=== PATIENT | female | born 1945 | race Asian ===

== ENCOUNTER 2016-02-18 09:27 | Inpatient (IN) | payer OTHER | END 2016-03-20 08:00 | disposition still patient (30) | LOC: PAVB 09:27 | PROVIDERS: ADMIT Internal Medicine | DX: Z51.89 Encounter for other specified aftercare (principal) ==

== ENCOUNTER 2016-03-20 09:00 | Inpatient (IN) | payer OTHER | END 2016-04-20 10:16 | disposition still patient (30) | LOC: PAVB 09:00 | PROVIDERS: ADMIT Internal Medicine | DX: Z51.89 Encounter for other specified aftercare (principal) ==

== ENCOUNTER 2016-04-20 10:38 | Inpatient (IN) | payer OTHER | END 2016-05-18 09:44 | disposition still patient (30) | LOC: PAVB 10:38 | PROVIDERS: ADMIT Internal Medicine | DX: Z51.89 Encounter for other specified aftercare (principal) ==

== ENCOUNTER 2016-04-22 06:37 | Outpatient (CLI) | payer OTHER ==
[2016-04-22 06:56] LABS: PLATELET COUNT 252 K/uL (152-353)
[2016-04-22 07:16] LABS: SODIUM 136 mmol/L (136-145)
== END 2016-04-22 07:37 | disposition home or self-care (01) ==
LOC: LAB 06:37
PROVIDERS: Internal Medicine
DX: I10 Essential (primary) hypertension (principal); Z79.899 Other long term (current) drug therapy; R73.9 Hyperglycemia, unspecified
CPT/HCPCS: 36415; 80053; 80164; 82306; 83036; 85027

== ENCOUNTER 2016-05-06 15:01 | Outpatient (CLI) | payer OTHER | END 2016-05-06 19:31 | disposition home or self-care (01) | LOC: LAB 15:01 | DX: R10.84 Generalized abdominal pain (principal) | CPT/HCPCS: 81000; 87088 ==

== ENCOUNTER 2016-05-18 10:27 | Inpatient (IN) | payer OTHER | END 2016-06-18 08:06 | disposition still patient (30) | LOC: PAVB 10:27 | PROVIDERS: ADMIT Internal Medicine | DX: Z51.89 Encounter for other specified aftercare (principal) ==

== ENCOUNTER 2016-06-03 09:58 | Outpatient (CLI) | payer OTHER | END 2016-06-03 10:58 | disposition home or self-care (01) | LOC: MAMMO 09:58 | DX: Z12.31 Encounter for screening mammogram for malignant neoplasm of breast (principal) | CPT/HCPCS: G0202-TC ==

== ENCOUNTER 2016-06-15 13:43 | Outpatient (CLI) | payer OTHER | END 2016-06-15 19:19 | disposition home or self-care (01) | LOC: MAMMO 13:43 | DX: N64.89 Other specified disorders of breast (principal) | CPT/HCPCS: G0206-TC ==

== ENCOUNTER 2016-06-18 09:25 | Inpatient (IN) | payer OTHER | END 2016-07-18 09:09 | disposition still patient (30) | LOC: PAVB 09:25 | PROVIDERS: ADMIT Internal Medicine | DX: Z51.89 Encounter for other specified aftercare (principal) ==

== ENCOUNTER 2016-07-06 04:49 | Outpatient (CLI) | payer OTHER | END 2016-07-06 19:02 | disposition home or self-care (01) | LOC: LAB 04:49 | DX: Z16.24 Resistance to multiple antibiotics (principal) | CPT/HCPCS: 87081 ==

== ENCOUNTER 2016-07-18 09:57 | Inpatient (IN) | payer OTHER | END 2016-08-18 09:32 | disposition still patient (30) | LOC: PAVB 09:57 | PROVIDERS: ADMIT Internal Medicine | DX: Z51.89 Encounter for other specified aftercare (principal) ==

== ENCOUNTER 2016-07-22 08:36 | Outpatient (CLI) | payer OTHER | END 2016-07-22 09:30 | disposition home or self-care (01) | LOC: LAB 08:36 | DX: E11.9 Type 2 diabetes mellitus without complications (principal) | CPT/HCPCS: 36415; 83036 ==

== ENCOUNTER 2016-08-18 09:57 | Inpatient (IN) | payer OTHER | END 2016-09-17 15:22 | disposition still patient (30) | LOC: PAVB 09:57 | PROVIDERS: ADMIT Internal Medicine | DX: Z51.89 Encounter for other specified aftercare (principal) ==

== ENCOUNTER 2016-09-17 15:38 | Inpatient (IN) | payer OTHER | END 2016-10-18 09:43 | disposition still patient (30) | LOC: PAVB 15:38 | PROVIDERS: ADMIT Internal Medicine | DX: Z51.89 Encounter for other specified aftercare (principal) ==

== ENCOUNTER 2016-10-18 10:31 | Inpatient (IN) | payer OTHER | END 2016-11-18 08:41 | disposition still patient (30) | LOC: PAVB 10:31 | PROVIDERS: ADMIT Internal Medicine | DX: Z51.89 Encounter for other specified aftercare (principal) ==

== ENCOUNTER 2016-10-20 06:17 | Outpatient (CLI) | payer OTHER ==
[2016-10-20 08:03] LABS: PLATELET COUNT 245 K/uL (152-353)
[2016-10-20 08:28] LABS: POTASSIUM 4.1 mmol/L (3.6-5.2); SODIUM 142 mmol/L (136-145)
== END 2016-10-20 19:54 | disposition home or self-care (01) ==
LOC: LAB 06:17
PROVIDERS: Internal Medicine
DX: I10 Essential (primary) hypertension (principal); Z79.899 Other long term (current) drug therapy; E55.9 Vitamin D deficiency, unspecified; Z51.81 Encounter for therapeutic drug level monitoring
CPT/HCPCS: 36415; 80053; 80164; 82306; 83036; 85027

== ENCOUNTER 2016-11-16 15:41 | Outpatient (CLI) | payer OTHER | END 2016-11-16 19:19 | disposition home or self-care (01) | LOC: RESP 15:41 | DX: G56.21 Lesion of ulnar nerve, right upper limb (principal) ==

== ENCOUNTER 2016-11-17 15:01 | Outpatient (CLI) | payer OTHER | END 2016-11-17 19:02 | disposition home or self-care (01) | LOC: LAB 15:01 | DX: E11.9 Type 2 diabetes mellitus without complications (principal) | CPT/HCPCS: 83036 ==

== ENCOUNTER 2016-11-18 09:09 | Inpatient (IN) | payer OTHER | END 2016-12-18 10:34 | disposition still patient (30) | LOC: PAVB 09:09 | PROVIDERS: ADMIT Internal Medicine ==

== ENCOUNTER 2016-12-18 10:38 | Inpatient (IN) | payer OTHER | END 2017-01-18 12:56 | disposition still patient (30) | LOC: PAVB 10:38 | PROVIDERS: ADMIT Internal Medicine ==

== ENCOUNTER 2017-01-02 14:17 | Outpatient (CLI) | payer OTHER | END 2017-01-02 15:20 | disposition home or self-care (01) | LOC: RAD 14:17 | DX: M25.511 Pain in right shoulder (principal) ==

== ENCOUNTER 2017-01-12 09:01 | Outpatient (CLI) | payer OTHER | END 2017-01-12 10:05 | disposition home or self-care (01) | LOC: MRI 09:01 | DX: M25.511 Pain in right shoulder (principal) ==

== ENCOUNTER 2017-01-18 13:39 | Inpatient (IN) | payer OTHER ==
[2017-02-14] MEDS ORDERED: AMLODIPINE BESYLATE PO (17:55)
[2017-02-14] MEDS ORDERED: SIMBRINZA OP (17:55)
[2017-02-14] MEDS ORDERED: FLUTMIS6 INH (17:55)
[2017-02-14] MEDS ORDERED: ANORO ELLIPTA 61 AER IN (17:56)
[2017-02-14] MEDS ORDERED: BUSPIRONE7.5 MG PO (17:56)
[2017-02-14] MEDS ORDERED: BENZTROPINE2 MG PO (17:56)
[2017-02-14] MEDS ORDERED: CALCIUM +D OR (17:57)
[2017-02-14] MEDS ORDERED: DIVA500T2 OR (17:58)
[2017-02-14] MEDS ORDERED: CLON0.5T36 PO (17:58)
[2017-02-14] MEDS ORDERED: FLUO10CA2 PO (17:58)
[2017-02-14] MEDS ORDERED: METF100038 OR (17:59)
[2017-02-14] MEDS ORDERED: MELATONIN10 M2 PO (17:59)
[2017-02-14] MEDS ORDERED: NAMZARIC 28-101 CAP PO (18:00)
[2017-02-14] MEDS ORDERED: MYRBETRIQ50 MG OR (18:00)
[2017-02-14] MEDS ORDERED: NAPROSYN500 MG OR (18:01)
[2017-02-14] MEDS ORDERED: MIRALAX3350 N1 OR (18:01)
[2017-02-14] MEDS ORDERED: PROTONIX20 MG PO (18:01)
[2017-02-14] MEDS ORDERED: REQUIP1 MG OR (18:02)
[2017-02-14] MEDS ORDERED: SEROQUEL100 MG OR (18:02)
[2017-02-14] MEDS ORDERED: LAXATIVE1 TAB OR (18:03)
[2017-02-14] MEDS ORDERED: ZIPR80CA PO (18:03)
[2017-02-14] MEDS ORDERED: ALPR0.2566 PO (18:04)
[2017-02-14] MEDS ORDERED: DIPH25CA90 PO (18:05)
[2017-02-14] MEDS ORDERED: ROBITUSSIN15 MG/5 ML OR (18:06)
== END 2017-02-17 09:19 | disposition still patient (30) ==
LOC: PAVB 13:39
PROVIDERS: ADMIT Internal Medicine

== ENCOUNTER 2017-01-23 12:36 | Outpatient (CLI) | payer OTHER | END 2017-01-23 13:40 | disposition home or self-care (01) | LOC: RAD 12:36 | DX: R05 Cough (principal) ==

== ENCOUNTER 2017-02-13 04:29 | Outpatient (CLI) | payer OTHER ==
[2017-02-14] MEDS ORDERED: SIMBRINZA OP (17:55)
[2017-02-14] MEDS ORDERED: AMLODIPINE BESYLATE PO (17:55)
[2017-02-14] MEDS ORDERED: FLUTMIS6 INH (17:55)
[2017-02-14] MEDS ORDERED: ANORO ELLIPTA 61 AER IN (17:56)
[2017-02-14] MEDS ORDERED: BUSPIRONE7.5 MG PO (17:56)
[2017-02-14] MEDS ORDERED: BENZTROPINE2 MG PO (17:56)
[2017-02-14] MEDS ORDERED: CALCIUM +D OR (17:57)
[2017-02-14] MEDS ORDERED: CLON0.5T36 PO (17:58)
[2017-02-14] MEDS ORDERED: DIVA500T2 OR (17:58)
[2017-02-14] MEDS ORDERED: FLUO10CA2 PO (17:58)
[2017-02-14] MEDS ORDERED: METF100038 OR (17:59)
[2017-02-14] MEDS ORDERED: MELATONIN10 M2 PO (17:59)
[2017-02-14] MEDS ORDERED: NAMZARIC 28-101 CAP PO (18:00)
[2017-02-14] MEDS ORDERED: MYRBETRIQ50 MG OR (18:00)
[2017-02-14] MEDS ORDERED: MIRALAX3350 N1 OR (18:01)
[2017-02-14] MEDS ORDERED: PROTONIX20 MG PO (18:01)
[2017-02-14] MEDS ORDERED: NAPROSYN500 MG OR (18:01)
[2017-02-14] MEDS ORDERED: SEROQUEL100 MG OR (18:02)
[2017-02-14] MEDS ORDERED: REQUIP1 MG OR (18:02)
[2017-02-14] MEDS ORDERED: LAXATIVE1 TAB OR (18:03)
[2017-02-14] MEDS ORDERED: ZIPR80CA PO (18:03)
[2017-02-14] MEDS ORDERED: ALPR0.2566 PO (18:04)
[2017-02-14] MEDS ORDERED: DIPH25CA90 PO (18:05)
[2017-02-14] MEDS ORDERED: ROBITUSSIN15 MG/5 ML OR (18:06)
== END 2017-02-13 18:54 | disposition home or self-care (01) ==
LOC: LAB 04:29
DX: E11.21 Type 2 diabetes mellitus with diabetic nephropathy (principal)
CPT/HCPCS: 36415; 83036

== ENCOUNTER 2017-02-14 17:39 | Emergency (ER) | payer OTHER ==
[~2017-02-14] VITALS: Ht 165.1 cm; Wt 99.8 kg
[2017-02-14] MEDS ORDERED: FLUTMIS6 INH (17:55)
[2017-02-14] MEDS ORDERED: SIMBRINZA OP (17:55)
[2017-02-14] MEDS ORDERED: AMLODIPINE BESYLATE PO (17:55)
[2017-02-14] MEDS ORDERED: BENZTROPINE2 MG PO (17:56)
[2017-02-14] MEDS ORDERED: BUSPIRONE7.5 MG PO (17:56)
[2017-02-14] MEDS ORDERED: ANORO ELLIPTA 61 AER IN (17:56)
[2017-02-14] MEDS ORDERED: CALCIUM +D OR (17:57)
[2017-02-14] MEDS ORDERED: FLUO10CA2 PO (17:58)
[2017-02-14] MEDS ORDERED: DIVA500T2 OR (17:58)
[2017-02-14] MEDS ORDERED: CLON0.5T36 PO (17:58)
[2017-02-14] MEDS ORDERED: METF100038 OR (17:59)
[2017-02-14] MEDS ORDERED: MELATONIN10 M2 PO (17:59)
[2017-02-14] MEDS ORDERED: NAMZARIC 28-101 CAP PO (18:00)
[2017-02-14] MEDS ORDERED: MYRBETRIQ50 MG OR (18:00)
[2017-02-14] MEDS ORDERED: PROTONIX20 MG PO (18:01)
[2017-02-14] MEDS ORDERED: NAPROSYN500 MG OR (18:01)
[2017-02-14] MEDS ORDERED: MIRALAX3350 N1 OR (18:01)
[2017-02-14] MEDS ORDERED: REQUIP1 MG OR (18:02)
[2017-02-14] MEDS ORDERED: SEROQUEL100 MG OR (18:02)
[2017-02-14] MEDS ORDERED: ZIPR80CA PO (18:03)
[2017-02-14] MEDS ORDERED: LAXATIVE1 TAB OR (18:03)
[2017-02-14] MEDS ORDERED: ALPR0.2566 PO (18:04)
[2017-02-14] MEDS ORDERED: DIPH25CA90 PO (18:05)
[2017-02-14] MEDS ORDERED: ROBITUSSIN15 MG/5 ML OR (18:06)
[2017-02-14 18:13] LABS: PLATELET COUNT 273 K/uL (152-353)
[2017-02-14 18:31] LABS: POTASSIUM 4.2 mmol/L (3.6-5.2); SODIUM 138 mmol/L (136-145)
[2017-02-14 19:20] VITALS: BP 186/99; TEMP 98.9
== END 2017-02-14 19:32 | disposition home or self-care (01) ==
LOC: ED 17:39
DX: G45.9 Transient cerebral ischemic attack, unspecified (principal); G24.01 Drug induced subacute dyskinesia; J32.0 Chronic maxillary sinusitis
CPT/HCPCS: 36415; 80053; 81000; 85027; 99283

== ENCOUNTER 2017-02-17 09:38 | Inpatient (IN) | payer OTHER ==
[~2017-02-17 09:38] MED LIST: ALPR0.2566 PO; AMLODIPINE BESYLATE PO; ANORO ELLIPTA 61 AER IN; BENZTROPINE2 MG PO; BUSPIRONE7.5 MG PO; CALCIUM +D OR; CLON0.5T36 PO; DIPH25CA90 PO; DIVA500T2 OR; FLUO10CA2 PO; FLUTMIS6 INH; LAXATIVE1 TAB OR; MELATONIN10 M2 PO; METF100038 OR; MIRALAX3350 N1 OR; MYRBETRIQ50 MG OR; NAMZARIC 28-101 CAP PO; NAPROSYN500 MG OR; PROTONIX20 MG PO; REQUIP1 MG OR; ROBITUSSIN15 MG/5 ML OR; SEROQUEL100 MG OR; SIMBRINZA OP; ZIPR80CA PO
== END 2017-03-20 09:30 | disposition still patient (30) ==
LOC: PAVB 09:38
PROVIDERS: ADMIT Internal Medicine

== ENCOUNTER 2017-02-23 13:04 | Outpatient (CLI) | payer OTHER | END 2017-02-23 19:11 | disposition home or self-care (01) | LOC: RESP 13:04 | DX: G45.8 Other transient cerebral ischemic attacks and related syndromes (principal) ==

== ENCOUNTER 2017-02-24 08:59 | Outpatient (CLI) | payer OTHER | END 2017-02-24 19:17 | disposition home or self-care (01) | LOC: MRI 08:59 | DX: Z86.73 Personal history of transient ischemic attack (TIA), and cerebral infarction without residual deficits (principal) | CPT/HCPCS: 93306 ==

== ENCOUNTER 2017-03-20 10:00 | Inpatient (IN) | payer OTHER | END 2017-04-20 09:49 | disposition still patient (30) | LOC: PAVB 10:00 | PROVIDERS: ADMIT Internal Medicine ==

== ENCOUNTER 2017-04-20 10:35 | Inpatient (IN) | payer OTHER | END 2017-05-18 09:18 | disposition still patient (30) | LOC: PAVB 10:35 | PROVIDERS: ADMIT Internal Medicine ==

== ENCOUNTER 2017-04-25 05:47 | Outpatient (CLI) | payer OTHER ==
[2017-04-25 06:28] LABS: PLATELET COUNT 276 K/uL (152-353)
[2017-04-25 06:41] LABS: POTASSIUM 4.2 mmol/L (3.6-5.2)
== END 2017-04-25 20:03 | disposition home or self-care (01) ==
LOC: LAB 05:47
PROVIDERS: Internal Medicine
DX: I10 Essential (primary) hypertension (principal); Z79.899 Other long term (current) drug therapy; Z51.81 Encounter for therapeutic drug level monitoring; E55.9 Vitamin D deficiency, unspecified
CPT/HCPCS: 80053; 80164; 82306; 83036; 85027

== ENCOUNTER 2017-05-18 09:52 | Inpatient (IN) | payer OTHER | END 2017-06-18 08:00 | disposition still patient (30) | LOC: PAVB 09:52 | PROVIDERS: ADMIT Internal Medicine ==

== ENCOUNTER 2017-06-18 09:00 | Inpatient (IN) | payer OTHER | END 2017-07-18 09:04 | disposition still patient (30) | LOC: PAVB 09:00 | PROVIDERS: ADMIT Internal Medicine ==

== ENCOUNTER 2017-07-18 09:30 | Inpatient (IN) | payer OTHER | END 2017-08-18 08:52 | disposition still patient (30) | LOC: PAVB 09:30 | PROVIDERS: ADMIT Internal Medicine ==

== ENCOUNTER 2017-07-19 10:22 | Outpatient (CLI) | payer OTHER | END 2017-07-19 21:39 | disposition home or self-care (01) | LOC: LAB 10:22 | DX: E11.9 Type 2 diabetes mellitus without complications (principal) | CPT/HCPCS: 83036 ==

== ENCOUNTER 2017-08-18 09:16 | Inpatient (IN) | payer OTHER | END 2017-09-17 14:19 | disposition still patient (30) | LOC: PAVB 09:16 | PROVIDERS: ADMIT Internal Medicine ==

== ENCOUNTER 2017-09-17 14:49 | Inpatient (IN) | payer OTHER | END 2017-10-18 08:00 | disposition still patient (30) | LOC: PAVB 14:49 | PROVIDERS: ADMIT Internal Medicine ==

== ENCOUNTER 2017-10-18 09:00 | Inpatient (IN) | payer OTHER | END 2017-11-18 10:18 | disposition still patient (30) | LOC: PAVB 09:00 | PROVIDERS: ADMIT Internal Medicine ==

== ENCOUNTER 2017-10-24 05:06 | Outpatient (CLI) | payer OTHER ==
[2017-10-24 08:58] LABS: PLATELET COUNT 278 K/uL (152-353)
[2017-10-24 09:42] LABS: POTASSIUM 4.4 mmol/L (3.6-5.2)
== END 2017-10-24 19:00 | disposition home or self-care (01) ==
LOC: LAB 05:06
PROVIDERS: Internal Medicine
DX: E11.9 Type 2 diabetes mellitus without complications (principal); Z79.899 Other long term (current) drug therapy; I10 Essential (primary) hypertension
CPT/HCPCS: 36415; 80053; 82306; 83036; 85027

== ENCOUNTER 2017-11-01 05:35 | Outpatient (CLI) | payer OTHER | END 2017-11-01 23:59 | disposition home or self-care (01) | LOC: LAB 05:35 | DX: Z51.81 Encounter for therapeutic drug level monitoring (principal) | CPT/HCPCS: 80164 ==

== ENCOUNTER 2017-11-18 10:57 | Inpatient (IN) | payer OTHER | END 2017-12-18 09:20 | disposition still patient (30) | LOC: PAVB 10:57 | PROVIDERS: ADMIT Internal Medicine ==

== ENCOUNTER 2017-12-18 10:06 | Inpatient (IN) | payer OTHER | END 2018-01-18 08:47 | disposition still patient (30) | LOC: PAVB 10:06 | PROVIDERS: ADMIT Internal Medicine ==

== ENCOUNTER 2018-01-18 06:00 | Outpatient (CLI) | payer OTHER | END 2018-01-18 21:49 | disposition home or self-care (01) | LOC: LAB 06:00 | DX: E11.9 Type 2 diabetes mellitus without complications (principal) | CPT/HCPCS: 36415; 83036 ==

== ENCOUNTER 2018-01-18 09:46 | Inpatient (IN) | payer OTHER | END 2018-02-17 08:32 | disposition still patient (30) | LOC: PAVB 09:46 | PROVIDERS: ADMIT Internal Medicine ==

== ENCOUNTER 2018-02-02 15:35 | Outpatient (CLI) | payer OTHER | END 2018-02-02 19:20 | disposition home or self-care (01) | LOC: RAD 15:35 | DX: N95.8 Other specified menopausal and perimenopausal disorders (principal) ==

== ENCOUNTER 2018-02-17 09:11 | Inpatient (IN) | payer OTHER | END 2018-03-20 11:05 | disposition still patient (30) | LOC: PAVB 09:11 | PROVIDERS: ADMIT Internal Medicine ==

== ENCOUNTER 2018-03-20 11:21 | Inpatient (IN) | payer OTHER | END 2018-04-20 10:53 | disposition still patient (30) | LOC: PAVB 11:21 → EDBD 04-20 10:53 | PROVIDERS: ADMIT Internal Medicine ==

== ENCOUNTER 2018-04-20 11:11 | Inpatient (IN) | payer OTHER | END 2018-05-18 10:18 | disposition still patient (30) | LOC: EDBD 11:11 → PAVB 11:11 | PROVIDERS: ADMIT Internal Medicine ==

== ENCOUNTER 2018-04-23 05:48 | Outpatient (CLI) | payer OTHER ==
[2018-04-23 08:41] LABS: PLATELET COUNT 335 K/uL (152-353)
[2018-04-23 09:55] LABS: POTASSIUM 4.3 mmol/L (3.6-5.2)
== END 2018-04-23 20:43 | disposition home or self-care (01) ==
LOC: EDBD 05:48 → LAB 05:48
PROVIDERS: Internal Medicine
DX: I10 Essential (primary) hypertension (principal); Z79.899 Other long term (current) drug therapy; E11.9 Type 2 diabetes mellitus without complications
CPT/HCPCS: 80053; 80164; 82306; 83036; 85027

== ENCOUNTER 2018-05-18 11:01 | Inpatient (IN) | payer OTHER | END 2018-06-18 10:39 | disposition still patient (30) | LOC: PAVB 11:01 | PROVIDERS: ADMIT Internal Medicine ==

== ENCOUNTER 2018-06-18 11:16 | Inpatient (IN) | payer OTHER | END 2018-07-18 11:16 | disposition still patient (30) | LOC: PAVB 11:16 | PROVIDERS: ADMIT Internal Medicine ==

== ENCOUNTER 2018-07-18 12:19 | Inpatient (IN) | payer OTHER | END 2018-08-18 08:37 | disposition still patient (30) | LOC: PAVB 12:19 | PROVIDERS: ADMIT Internal Medicine | DX: Z51.89 Encounter for other specified aftercare (principal) ==

== ENCOUNTER 2018-07-23 04:37 | Outpatient (CLI) | payer OTHER | END 2018-07-23 20:13 | disposition home or self-care (01) | LOC: LAB 04:37 | DX: E11.9 Type 2 diabetes mellitus without complications (principal) | CPT/HCPCS: 36415; 83036 ==

== ENCOUNTER 2018-07-31 07:00 | Outpatient (CLI) | payer OTHER | END 2018-07-31 21:17 | disposition home or self-care (01) | LOC: LAB 07:00 | DX: Z79.899 Other long term (current) drug therapy (principal) | CPT/HCPCS: 36415; 80164 ==

== ENCOUNTER 2018-08-16 05:31 | Outpatient (CLI) | payer OTHER | END 2018-08-16 19:13 | disposition home or self-care (01) | LOC: LAB 05:31 | DX: Z51.81 Encounter for therapeutic drug level monitoring (principal); Z79.899 Other long term (current) drug therapy | CPT/HCPCS: 80164 ==

== ENCOUNTER 2018-08-18 09:15 | Inpatient (IN) | payer OTHER | END 2018-09-17 09:37 | disposition still patient (30) | LOC: PAVB 09:15 | PROVIDERS: ADMIT Internal Medicine ==

== ENCOUNTER 2018-09-17 11:19 | Inpatient (IN) | payer OTHER | END 2018-10-18 10:34 | disposition still patient (30) | LOC: PAVB 11:19 | PROVIDERS: ADMIT Internal Medicine ==

== ENCOUNTER 2018-10-18 11:09 | Inpatient (IN) | payer OTHER | END 2018-11-18 16:25 | disposition still patient (30) | LOC: PAVB 11:09 | PROVIDERS: ADMIT Internal Medicine ==

== ENCOUNTER 2018-10-25 15:35 | Outpatient (CLI) | payer OTHER ==
[2018-10-25 15:49] LABS: PLATELET COUNT 290 K/uL (152-353)
[2018-10-25 16:02] LABS: POTASSIUM 3.9 mmol/L (3.6-5.2)
== END 2018-10-25 23:59 | disposition home or self-care (01) ==
LOC: LAB 15:35
PROVIDERS: Internal Medicine
DX: E11.9 Type 2 diabetes mellitus without complications (principal); I10 Essential (primary) hypertension; Z51.81 Encounter for therapeutic drug level monitoring; E55.9 Vitamin D deficiency, unspecified; Z79.899 Other long term (current) drug therapy
CPT/HCPCS: 80053; 80164; 82306; 83036; 85027

== ENCOUNTER 2018-11-18 17:02 | Inpatient (IN) | payer OTHER | END 2018-12-18 09:20 | disposition still patient (30) | LOC: PAVB 17:02 | PROVIDERS: ADMIT Internal Medicine ==

== ENCOUNTER 2018-12-18 10:21 | Inpatient (IN) | payer OTHER | END 2019-01-18 11:09 | disposition still patient (30) | LOC: PAVB 10:21 | PROVIDERS: ADMIT Internal Medicine ==

== ENCOUNTER 2019-01-18 11:30 | Inpatient (IN) | payer OTHER | END 2019-02-17 08:00 | disposition still patient (30) | LOC: PAVB 11:30 | PROVIDERS: ADMIT Internal Medicine ==

== ENCOUNTER 2019-01-23 05:29 | Outpatient (CLI) | payer OTHER | END 2019-01-23 21:33 | disposition home or self-care (01) | LOC: LAB 05:29 | DX: E11.9 Type 2 diabetes mellitus without complications (principal) | CPT/HCPCS: 83036 ==

== ENCOUNTER 2019-02-13 20:27 | Outpatient (CLI) | payer OTHER | END 2019-02-13 22:31 | disposition home or self-care (01) | LOC: LAB 20:27 | DX: R35.0 Frequency of micturition (principal) | CPT/HCPCS: 81000 ==

== ENCOUNTER 2019-02-17 10:10 | Inpatient (IN) | payer OTHER | END 2019-03-20 08:34 | disposition still patient (30) | LOC: PAVB 10:10 | PROVIDERS: ADMIT Internal Medicine ==

== ENCOUNTER 2019-03-20 08:47 | Inpatient (IN) | payer OTHER | END 2019-04-20 09:55 | disposition still patient (30) | LOC: PAVB 08:47 | PROVIDERS: ADMIT Internal Medicine ==

== ENCOUNTER 2019-04-04 10:18 | Outpatient (CLI) | payer OTHER | END 2019-04-04 20:19 | disposition home or self-care (01) | LOC: US 10:18 | DX: Z12.31 Encounter for screening mammogram for malignant neoplasm of breast (principal); D21.9 Benign neoplasm of connective and other soft tissue, unspecified ==

== ENCOUNTER 2019-04-20 10:30 | Inpatient (IN) | payer OTHER | END 2019-05-19 13:15 | disposition still patient (30) | LOC: PAVB 10:30 | PROVIDERS: ADMIT Internal Medicine ==

== ENCOUNTER 2019-04-24 06:35 | Outpatient (CLI) | payer OTHER ==
[2019-04-24 07:58] LABS: PLATELET COUNT 318 K/uL (152-353)
[2019-04-24 08:02] LABS: POTASSIUM 4.2 mmol/L (3.6-5.2)
== END 2019-04-24 22:26 | disposition home or self-care (01) ==
LOC: LAB 06:35
PROVIDERS: Internal Medicine
DX: E11.9 Type 2 diabetes mellitus without complications (principal); F20.9 Schizophrenia, unspecified
CPT/HCPCS: 80053; 80164; 82306; 83036; 85027

== ENCOUNTER 2019-05-19 13:56 | Inpatient (IN) | payer OTHER | END 2019-06-19 09:40 | disposition still patient (30) | LOC: PAVB 13:56 | PROVIDERS: ADMIT Internal Medicine ==

== ENCOUNTER 2019-06-19 10:15 | Inpatient (IN) | payer OTHER | END 2019-07-19 09:02 | disposition still patient (30) | LOC: PAVB 10:15 | PROVIDERS: ADMIT Internal Medicine ==

== ENCOUNTER 2019-07-19 09:56 | Inpatient (IN) | payer OTHER | END 2019-08-19 09:11 | disposition still patient (30) | LOC: PAVB 09:56 | PROVIDERS: ADMIT Internal Medicine | CPT/HCPCS: 87635; U0002 ==

== ENCOUNTER 2019-07-23 08:40 | Outpatient (CLI) | payer OTHER | END 2019-07-23 19:06 | disposition home or self-care (01) | LOC: LAB 08:40 | DX: E11.9 Type 2 diabetes mellitus without complications (principal) | CPT/HCPCS: 83036 ==

== ENCOUNTER 2019-08-19 09:54 | Inpatient (IN) | payer OTHER | END 2019-09-18 10:20 | disposition still patient (30) | LOC: PAVB 09:54 | PROVIDERS: ADMIT Internal Medicine | CPT/HCPCS: 87635; U0002 ==

== ENCOUNTER 2019-09-18 11:00 | Inpatient (IN) | payer OTHER | END 2019-10-19 09:15 | disposition still patient (30) | LOC: PAVB 11:00 | PROVIDERS: ADMIT Internal Medicine | CPT/HCPCS: 87635; U0002 ==

== ENCOUNTER 2019-09-23 13:28 | Outpatient (CLI) | payer OTHER | END 2019-09-23 21:50 | disposition home or self-care (01) | LOC: RAD 13:28 | DX: R07.81 Pleurodynia (principal) ==

== ENCOUNTER 2019-09-24 17:24 | Outpatient (CLI) | payer OTHER | END 2019-09-24 22:35 | disposition home or self-care (01) | LOC: LAB 17:24 | DX: R07.81 Pleurodynia (principal); R19.8 Other specified symptoms and signs involving the digestive system and abdomen | CPT/HCPCS: 81000 ==

== ENCOUNTER 2019-10-04 17:59 | Outpatient (CLI) | payer OTHER | END 2019-10-04 23:08 | disposition home or self-care (01) | LOC: LAB 17:59 | PROVIDERS: ATTEND Internal Medicine | DX: R19.8 Other specified symptoms and signs involving the digestive system and abdomen (principal); M54.31 Sciatica, right side | CPT/HCPCS: 80076 ==

== ENCOUNTER 2019-10-08 09:20 | Outpatient (CLI) | payer OTHER | END 2019-10-08 19:06 | disposition home or self-care (01) | LOC: US 09:20 | DX: R19.8 Other specified symptoms and signs involving the digestive system and abdomen (principal); R10.9 Unspecified abdominal pain ==

== ENCOUNTER 2019-10-19 09:36 | Inpatient (IN) | payer OTHER | END 2019-11-19 12:03 | disposition still patient (30) | LOC: PAVB 09:36 | PROVIDERS: ADMIT Internal Medicine | CPT/HCPCS: 87635; U0002; U0003 ==

== ENCOUNTER 2019-10-23 07:05 | Outpatient (CLI) | payer OTHER ==
[2019-10-23 07:50] LABS: PLATELET COUNT 330 K/uL (152-353)
[2019-10-23 08:21] LABS: POTASSIUM 4.4 mmol/L (3.6-5.2)
== END 2019-10-23 19:42 | disposition home or self-care (01) ==
LOC: LAB 07:05
PROVIDERS: Internal Medicine
DX: E11.9 Type 2 diabetes mellitus without complications (principal); I10 Essential (primary) hypertension; F20.9 Schizophrenia, unspecified; F03.91 Unspecified dementia, unspecified severity, with behavioral disturbance; J44.9 Chronic obstructive pulmonary disease, unspecified
CPT/HCPCS: 80053; 80164; 82306; 83036; 85027

== ENCOUNTER → 2019-10-24 | Outpatient (CLI) | payer OTHER | LOC: LAB 23:26 | DX: D64.89 Other specified anemias (principal) | CPT/HCPCS: 82272 ==

== ENCOUNTER 2019-10-25 04:24 | Outpatient (CLI) | payer OTHER | END 2019-10-25 19:28 | disposition home or self-care (01) | LOC: LAB 04:24 | DX: I10 Essential (primary) hypertension (principal); D64.9 Anemia, unspecified | CPT/HCPCS: 82728; 83540 ==

== ENCOUNTER 2019-10-25 08:38 | Outpatient (CLI) | payer OTHER | END 2019-10-25 19:29 | disposition home or self-care (01) | LOC: LAB 08:38 → NM 08:38 | DX: D64.89 Other specified anemias (principal) | CPT/HCPCS: 82272; A9537 ==

== ENCOUNTER 2019-10-26 12:32 | Outpatient (CLI) | payer OTHER | END 2019-10-26 20:35 | disposition home or self-care (01) | LOC: LABW 12:32 | DX: I10 Essential (primary) hypertension (principal); R19.5 Other fecal abnormalities | CPT/HCPCS: 82272 ==

== ENCOUNTER → 2019-10-28 | Outpatient (CLI) | payer OTHER ==
[~2019-10-28] VITALS: Ht 157.5 cm; Wt 76.2 kg
== END ==
LOC: INF 14:00
DX: D64.89 Other specified anemias (principal)
CPT/HCPCS: 85014; 85018; 96365; 96366; J0696; J1956

== ENCOUNTER 2019-11-19 12:57 | Inpatient (IN) | payer OTHER | END 2019-12-19 11:04 | disposition still patient (30) | LOC: PAVB 12:57 | PROVIDERS: ADMIT Internal Medicine ==

== ENCOUNTER 2019-12-19 13:42 | Inpatient (IN) | payer OTHER | END 2020-01-19 08:00 | disposition still patient (30) | LOC: PAVB 13:42 | PROVIDERS: ADMIT Internal Medicine ==

== ENCOUNTER 2020-01-02 16:35 | Outpatient (CLI) | payer OTHER | END 2020-01-02 22:21 | disposition home or self-care (01) | LOC: LAB 16:35 | DX: R19.5 Other fecal abnormalities (principal) | CPT/HCPCS: 82272 ==

== ENCOUNTER 2020-01-18 08:00 | Outpatient (CLI) | payer OTHER | END 2020-01-18 17:00 | LOC: CCM 08:00 | PROVIDERS: ATTEND Nurse Practitioner Family | DX: J44.9 Chronic obstructive pulmonary disease, unspecified (principal); I10 Essential (primary) hypertension; E11.9 Type 2 diabetes mellitus without complications | CPT/HCPCS: 99453; 99454 ==

== ENCOUNTER 2020-01-19 09:00 | Inpatient (IN) | payer OTHER | END 2020-02-18 09:59 | disposition still patient (30) | LOC: PAVB 09:00 | PROVIDERS: ADMIT Internal Medicine; ATTEND Internal Medicine ==

== ENCOUNTER 2020-01-23 09:59 | Outpatient (CLI) | payer OTHER | END 2020-01-23 20:20 | disposition home or self-care (01) | LOC: LAB 09:59 | DX: E11.9 Type 2 diabetes mellitus without complications (principal) | CPT/HCPCS: 83036 ==

== ENCOUNTER 2020-02-05 14:07 | Outpatient (CLI) | payer OTHER | END 2020-02-05 20:48 | disposition home or self-care (01) | LOC: RAD 14:07 | PROVIDERS: ATTEND Internal Medicine | DX: Z13.820 Encounter for screening for osteoporosis (principal); N95.8 Other specified menopausal and perimenopausal disorders ==

== ENCOUNTER 2020-02-18 11:06 | Inpatient (IN) | payer OTHER | END 2020-03-20 09:03 | disposition still patient (30) | LOC: PAVB 11:06 | PROVIDERS: ADMIT Internal Medicine; ATTEND Internal Medicine ==

== ENCOUNTER 2020-02-25 18:46 | Outpatient (CLI) | payer OTHER | END 2020-02-25 19:40 | disposition home or self-care (01) | LOC: LAB 18:46 | PROVIDERS: ATTEND Internal Medicine | DX: R19.7 Diarrhea, unspecified (principal) | CPT/HCPCS: 82272; 83630; 87015; 87045; 87324; 87328; 87329; 87449; 87899 ==

== ENCOUNTER 2020-02-26 18:47 | Outpatient (CLI) | payer OTHER ==
[2020-02-26 18:53] LABS: PLATELET COUNT 293 K/uL (152-353)
== END 2020-02-26 21:11 | disposition home or self-care (01) ==
LOC: LAB 18:47
PROVIDERS: ATTEND Internal Medicine
DX: R19.5 Other fecal abnormalities (principal)
CPT/HCPCS: 85027

== ENCOUNTER 2020-03-20 09:22 | Inpatient (IN) | payer OTHER | END 2020-04-20 14:56 | disposition still patient (30) | LOC: PAVB 09:22 | PROVIDERS: ADMIT Internal Medicine; ATTEND Internal Medicine ==

== ENCOUNTER 2020-04-08 09:56 | Outpatient (CLI) | payer OTHER | END 2020-04-08 23:59 | disposition home or self-care (01) | LOC: MAMMO 09:56 | PROVIDERS: ATTEND Internal Medicine | DX: Z12.31 Encounter for screening mammogram for malignant neoplasm of breast (principal) ==

== ENCOUNTER 2020-04-20 15:12 | Inpatient (IN) | payer OTHER | END 2020-05-18 09:55 | disposition still patient (30) | LOC: PAVB 15:12 | PROVIDERS: ADMIT Internal Medicine; ATTEND Internal Medicine ==

== ENCOUNTER 2020-05-18 10:16 | Inpatient (IN) | payer OTHER | END 2020-06-18 10:15 | disposition still patient (30) | LOC: PAVB 10:16 | PROVIDERS: ADMIT Internal Medicine; ATTEND Internal Medicine ==

== ENCOUNTER 2020-06-02 12:18 | Outpatient (CLI) | payer OTHER ==
[2020-06-02 13:11] LABS: PLATELET COUNT 291 K/uL (152-353)
[2020-06-02 13:27] LABS: POTASSIUM 3.8 mmol/L (3.6-5.2)
== END 2020-06-02 20:47 | disposition home or self-care (01) ==
LOC: LAB 12:18
PROVIDERS: ATTEND Internal Medicine
DX: Z01.818 Encounter for other preprocedural examination (principal)
CPT/HCPCS: 80053; 85027

== ENCOUNTER 2020-06-04 07:52 | Day surgery (SDC) | payer OTHER | END 2020-06-04 11:07 | disposition home or self-care (01) | LOC: OR 07:52 | PROVIDERS: ATTEND Internal Medicine | PROC: 0DBH8ZZ Excision of Cecum, Via Natural or Artificial Opening Endoscopic (ICD-10-PCS; principal; 2020-06-04) | DX: D12.0 Benign neoplasm of cecum (principal); K62.5 Hemorrhage of anus and rectum; D64.89 Other specified anemias | CPT/HCPCS: J2704 ==

== ENCOUNTER 2020-06-18 07:49 | Day surgery (SDC) | payer OTHER | END 2020-06-18 10:10 | LOC: OR 07:49 | PROVIDERS: ATTEND Internal Medicine | PROC: 0DB68ZZ Excision of Stomach, Via Natural or Artificial Opening Endoscopic (ICD-10-PCS; principal; 2020-06-18) | DX: K29.50 Unspecified chronic gastritis without bleeding (principal); K44.9 Diaphragmatic hernia without obstruction or gangrene; K92.2 Gastrointestinal hemorrhage, unspecified; D64.89 Other specified anemias | CPT/HCPCS: J2704 ==

== ENCOUNTER 2020-06-18 10:34 | Inpatient (IN) | payer OTHER | END 2020-07-18 10:51 | disposition still patient (30) | LOC: PAVB 10:34 | PROVIDERS: ADMIT Internal Medicine; ATTEND Internal Medicine ==

== ENCOUNTER 2020-06-23 09:45 | Outpatient (CLI) | payer OTHER | END 2020-06-23 19:11 | disposition home or self-care (01) | LOC: LAB 09:45 | PROVIDERS: ATTEND Internal Medicine | DX: K92.1 Melena (principal) | CPT/HCPCS: 82272 ==

== ENCOUNTER 2020-07-18 11:08 | Inpatient (IN) | payer OTHER | END 2020-08-18 14:39 | disposition still patient (30) | LOC: PAVB 11:08 | PROVIDERS: ADMIT Internal Medicine; ATTEND Internal Medicine ==

== ENCOUNTER 2020-07-22 10:21 | Outpatient (CLI) | payer OTHER ==
[2020-07-22 11:03] LABS: PLATELET COUNT 357 K/uL (152-353)
== END 2020-07-22 19:20 | disposition home or self-care (01) ==
LOC: LAB 10:21
PROVIDERS: ATTEND Internal Medicine
DX: K92.2 Gastrointestinal hemorrhage, unspecified (principal); E11.9 Type 2 diabetes mellitus without complications; I10 Essential (primary) hypertension
CPT/HCPCS: 80053; 82272; 82705; 82728; 82746; 83036; 83540; 83550; 83630; 85027; 85044; 87015; 87045; 87324; 87328; 87329; 87449; 87899

== ENCOUNTER 2020-08-10 13:04 | Outpatient (CLI) | payer OTHER | END 2020-08-10 21:02 | disposition home or self-care (01) | LOC: US 13:04 | PROVIDERS: ATTEND Internal Medicine | DX: N93.8 Other specified abnormal uterine and vaginal bleeding (principal) ==

== ENCOUNTER 2020-08-18 15:01 | Inpatient (IN) | payer OTHER | END 2020-09-17 08:00 | disposition still patient (30) | LOC: PAVB 15:01 | PROVIDERS: ADMIT Internal Medicine; ATTEND Internal Medicine ==

== ENCOUNTER 2020-08-21 08:02 | Outpatient (CLI) | payer OTHER | END 2020-08-21 19:52 | disposition home or self-care (01) | LOC: NM 08:02 | PROVIDERS: ATTEND Internal Medicine Gastroenterology | DX: R11.0 Nausea (principal) | CPT/HCPCS: A9541 ==

== ENCOUNTER 2020-09-07 09:15 | Outpatient (CLI) | payer OTHER ==
[2020-09-20 07:40] LABS: PLATELET COUNT 329 K/uL (152-353); POTASSIUM 4.2 mmol/L (3.6-5.2)
== END 2020-09-07 12:00 | disposition home or self-care (01) ==
LOC: RESP 09:15
PROVIDERS: ATTEND Internal Medicine
DX: Z01.818 Encounter for other preprocedural examination (principal)
CPT/HCPCS: 36415; 80048; 85027; 93005

== ENCOUNTER 2020-09-08 22:46 | Inpatient (IN) | payer OTHER ==
[2020-09-20 12:36] LABS: PLATELET COUNT 284 K/uL (152-353); SODIUM 139 mmol/L (136-145)
[2020-09-21 07:41] LABS: PLATELET COUNT 329 K/uL (152-353)
[2020-09-21 07:42] LABS: POTASSIUM 4.3 mmol/L (3.6-5.2)
== END 2020-09-11 13:20 | DRG 192 ==
LOC: ED 22:46 → MED/SURG 09-09 03:30
PROVIDERS: ADMIT Family Medicine; ATTEND Internal Medicine Endocrinology, Diabetes & Metabolism
DX: J44.1 Chronic obstructive pulmonary disease with (acute) exacerbation (principal); F02.80 Dementia in other diseases classified elsewhere, unspecified severity, without behavioral disturbance, psychotic disturbance, mood disturbance, and anxiety; G20 Parkinson's disease; I10 Essential (primary) hypertension; E11.9 Type 2 diabetes mellitus without complications; Z79.4 Long term (current) use of insulin; H40.89 Other specified glaucoma
CPT/HCPCS: 36415; 80053; 81000; 82948; 83605; 84484; 85027; 87040; 87635; 93005; 94640; 94664; 94760; 96365; 96366; 96367; 96372; 96375; 99220; 99284; G0378; J0696; J1650; J1815; J1956; J3490; U0003

== ENCOUNTER 2020-09-17 09:00 | Inpatient (IN) | payer OTHER | END 2020-10-18 08:00 | disposition still patient (30) | LOC: PAVB 09:00 | PROVIDERS: ADMIT Internal Medicine; ATTEND Internal Medicine ==

== ENCOUNTER 2020-10-05 17:53 | Outpatient (CLI) | payer OTHER | END 2020-10-05 19:58 | disposition home or self-care (01) | LOC: LAB 17:53 | PROVIDERS: ATTEND Internal Medicine | DX: K92.1 Melena (principal) | CPT/HCPCS: 82272 ==

== ENCOUNTER 2020-10-06 13:33 | Outpatient (CLI) | payer OTHER ==
[2020-10-06 14:12] LABS: PLATELET COUNT 326 K/uL (152-353)
[2020-10-06 15:23] LABS: POTASSIUM 4.3 mmol/L (3.6-5.2)
== END 2020-10-06 21:37 | disposition home or self-care (01) ==
LOC: LAB 13:33
PROVIDERS: ATTEND Internal Medicine
DX: R06.02 Shortness of breath (principal); R09.02 Hypoxemia; J44.9 Chronic obstructive pulmonary disease, unspecified
CPT/HCPCS: 80048; 83880; 85027

== ENCOUNTER 2020-10-06 14:41 | Emergency (ER) | payer OTHER ==
[~2020-10-06] VITALS: Ht 165.1 cm; Wt 90.7 kg
[2020-10-06 15:58] LABS: PLATELET COUNT 335 K/uL (152-353)
[2020-10-06 15:59] LABS: POTASSIUM 4.2 mmol/L (3.6-5.2); SODIUM 140 mmol/L (136-145)
[2020-10-06 19:30] VITALS: BP 108/68; TEMP 98
== END 2020-10-06 19:30 ==
LOC: ED 14:45
PROVIDERS: Family Medicine
DX: J44.9 Chronic obstructive pulmonary disease, unspecified (principal); I50.9 Heart failure, unspecified; J06.9 Acute upper respiratory infection, unspecified; Z20.822 Contact with and (suspected) exposure to COVID-19
CPT/HCPCS: 80053; 81000; 84484; 85027; 87635; 93005; 99283; U0003

== ENCOUNTER 2020-10-07 14:02 | Outpatient (CLI) | payer OTHER | END 2020-10-07 21:02 | disposition home or self-care (01) | LOC: LAB 14:02 | PROVIDERS: ATTEND Internal Medicine | DX: D64.9 Anemia, unspecified (principal) | CPT/HCPCS: 82272 ==

== ENCOUNTER 2020-10-08 06:27 | Outpatient (CLI) | payer OTHER | END 2020-10-08 10:00 | disposition home or self-care (01) | LOC: LAB 06:27 | PROVIDERS: ATTEND Internal Medicine | DX: D64.9 Anemia, unspecified (principal) | CPT/HCPCS: 82272 ==

== ENCOUNTER 2020-10-12 08:33 | Outpatient (CLI) | payer OTHER | END 2020-10-12 20:55 | disposition home or self-care (01) | LOC: RESP 08:33 | PROVIDERS: ATTEND Internal Medicine | DX: I50.9 Heart failure, unspecified (principal) ==

== ENCOUNTER 2020-10-13 06:17 | Outpatient (CLI) | payer OTHER | END 2020-10-13 20:30 | disposition home or self-care (01) | LOC: LAB 06:17 | PROVIDERS: ATTEND Internal Medicine | DX: D64.89 Other specified anemias (principal) | CPT/HCPCS: 85014; 85018 ==

== ENCOUNTER 2020-10-15 14:16 | Outpatient (CLI) | payer OTHER ==
[2020-10-15 14:53] LABS: POTASSIUM 4.2 mmol/L (3.6-5.2)
== END 2020-10-15 22:09 | disposition home or self-care (01) ==
LOC: LAB 14:16
PROVIDERS: ATTEND Internal Medicine
DX: Z79.899 Other long term (current) drug therapy (principal); R06.02 Shortness of breath
CPT/HCPCS: 36415; 80048; 83880

== ENCOUNTER 2020-10-18 09:00 | Inpatient (IN) | payer OTHER | END 2020-11-07 06:45 | disposition E | LOC: PAVB 09:00 | PROVIDERS: ADMIT Internal Medicine; ATTEND Internal Medicine ==

== ENCOUNTER 2020-10-22 07:32 | Outpatient (CLI) | payer OTHER ==
[2020-10-22 08:36] LABS: POTASSIUM 4.6 mmol/L (3.6-5.2)
[2020-10-22 08:55] LABS: PLATELET COUNT 396 K/uL (152-353)
== END 2020-10-22 20:16 | disposition home or self-care (01) ==
LOC: LAB 07:32
PROVIDERS: ATTEND Internal Medicine
DX: E11.9 Type 2 diabetes mellitus without complications (principal); I10 Essential (primary) hypertension; J44.9 Chronic obstructive pulmonary disease, unspecified; F20.89 Other schizophrenia; F03.91 Unspecified dementia, unspecified severity, with behavioral disturbance; R06.02 Shortness of breath
CPT/HCPCS: 80053; 80164; 82306; 83036; 83880; 85027

== ENCOUNTER 2020-10-29 16:52 | Outpatient (CLI) | payer OTHER | END 2020-10-29 22:41 | disposition home or self-care (01) | LOC: RAD 16:52 | PROVIDERS: ATTEND Internal Medicine | DX: U07.1 COVID-19 (principal) ==

== ENCOUNTER 2020-10-30 13:56 | Outpatient (CLI) | payer OTHER | END 2020-10-30 23:14 | disposition home or self-care (01) | LOC: LAB 13:56 | PROVIDERS: ATTEND Internal Medicine | DX: U07.1 COVID-19 (principal) | CPT/HCPCS: 85379 ==

== ENCOUNTER → 2020-11-01 | Outpatient (CLI) | payer OTHER ==
[2020-11-01 08:29] LABS: PLATELET COUNT 156 K/uL (152-353)
== END ==
LOC: LAB 07:11
PROVIDERS: ATTEND Internal Medicine
DX: D64.89 Other specified anemias (principal)
CPT/HCPCS: 36415; 85027

== ENCOUNTER 2020-11-02 08:14 | Outpatient (CLI) | payer OTHER | END 2020-11-02 19:07 | disposition home or self-care (01) | LOC: LAB 08:14 | PROVIDERS: ATTEND Internal Medicine | DX: K62.5 Hemorrhage of anus and rectum (principal); D64.89 Other specified anemias | CPT/HCPCS: 85014; 85018 ==

== ENCOUNTER 2020-11-03 07:18 | Outpatient (CLI) | payer OTHER | END 2020-11-03 20:10 | disposition home or self-care (01) | LOC: LAB 07:18 | PROVIDERS: ATTEND Internal Medicine | DX: D64.89 Other specified anemias (principal) | CPT/HCPCS: 36600; 82805; 85014; 85018; 86850; 86900; 86901; 86922; P9016 ==

== ENCOUNTER 2020-11-03 17:56 | Inpatient (IN) | payer OTHER ==
[~2020-11-03] VITALS: Ht 165.1 cm; Wt 78.1 kg
[2020-11-03 18:00] VITALS: BP 137/68; TEMP 97.7
[2020-11-03 18:56] LABS: PLATELET COUNT 322 K/uL (152-353)
[2020-11-03 18:58] LABS: POTASSIUM 4.6 mmol/L (3.6-5.2); SODIUM 137 mmol/L (136-145)
[2020-11-03 19:13] LABS: PARTIAL THROMBOPLASTIN TIME 22.2 SECONDS (24.5-33.6)
[2020-11-04] VITALS (16 sets, daily range): BP systolic 132–163; BP diastolic 75–97; TEMP 97–99.2; Ht 165.1 cm; Wt 78.1 kg
[2020-11-04 08:34] LABS: PLATELET COUNT 309 K/uL (152-353)
[2020-11-04 08:35] LABS: POTASSIUM 4.8 mmol/L (3.6-5.2)
--- NOTE | 2020-11-04 17:36 | NUR ---
PT ARRIVED FROM ER TO MED-SURG FLOOR AT 1630. PT AWAKE AND ALERT. PT HAS NON-REBREATHER AT 15LPM INTACT AND SATS=97%. PT HAS IV SITE INTACT TO 20GA RIGHT FOREARM AND NS @125L/HR. RESPIRATORY NOTIFIED AND ASSESSED PT AND PT CONTINUES TO BE ON NON-REBREATHER @15LPM. PT ABLE TO FOLLOW VERBAL COMMAND. PT REQUESTING COUGH MEDICINE BUT DOESN'T PRESENT WITH A COUGH AND PT STATED, "I NEED MY SLEEPING MEDICINE." REPORT TAKEN FROM ER NURSE ZEINA KIMBROUGH @1349. CONSULTED WITH HCP AND AWAITING NEW ORDERS. PTS VITAL SIGNS STABLE AND PT STABLE.
--- NOTE | 2020-11-04 18:49 | NUR ---
PT HAD ONE LOOSE STOOL X1 SINCE SHE HAS BEEN ON THE FLOOR. PT ON NPO STATUS AT PRESENT TIME AND WILL ADVANCE TO SOFT DIET TOLERATED. PTS WR=961 AND COVERED WITH REGULAR INSULIN PER SLIDING SCALE. PT CONTINUES ON IVF OF NS AT 125ML/HR. PT MAY HAVE ICE CHIPS, ICE CHIPS AT BESIDE. STOOL CULTURE NEEDED ON PT, WILL REPORT TO ON-COMING NURSE. PT CONTINUES TO BE ON NON-REBREATHER AT 15LPM AND SATS=95-97%.
--- NOTE | 2020-11-04 21:40 | NUR ---
EKG COMPLETED AND GIVEN TO RN.
--- NOTE | 2020-11-04 21:47 | NUR ---
EKG RESULTS OF ATRIAL FIBRILLATION WITH RAPID V-RATE CALLED TO DR. ANGELES AT THIS TIME. DR. ANGELES ORDERED A DOSE OF 5MG LOPRESSOR IV AND TO WAIT 5 MINUTES TO SEE IF HEART RATE COMES DOWN AND IF NOT TO GIVE ANOTHER 2ND DOSE OF 5 MG LOPRESSOR IVP. ORDERS NOTED AND CARRIED OUT. BP- 132/86 AT THIS TIME. WILL CONTINUE TO MONITOR.
--- NOTE | 2020-11-04 22:59 | NUR ---
COLIN KENNEY LPN IS TALKING WITH DR. JACOBS. REVIEWING HOME MEDICATIONS. PT'S HR IS 105 BPM AFTER 3 DOSES OF LPORESSOR 5 MG IVSP. PT DENIES ANY CHEST PAIN OR DISCOMFORT.
--- NOTE | 2020-11-04 23:56 | NUR ---
PO MEDICATIONS WERE GIVEN PER COLIN KENNEY LPN.
[2020-11-05] VITALS (10 sets, daily range): BP systolic 125–178; BP diastolic 76–101; TEMP 98.2–101
--- NOTE | 2020-11-05 00:30 | NUR ---
KARTHIK CALLED TO CHECK IN ON PT AT THIS TIME AFTER 5MG OF 3 DOSES OF LOPRESSOR FOR PT'S CONTINUOUS TACHYCARDIC EPISODES RANGING FROM 110-210. JEEPER OPERATOR STATED IN THE PAST 15 MINUTES PT. HAS STAYED BETWEEN 110-125. KARTHIK SAID "HE'LL TAKE THAT AND TO CONTINUE TO MONITOR".
--- NOTE | 2020-11-05 01:20 | NUR ---
ROUNDS MADE. PT IS RESTING QUIETLY WITH EYES CLOSED. UAING HIGH FLOW OXYGEN AT 100 PERCENT. PT WITH HISTORY OF COPD AND CHF. RESP ARE 34. O2 SAT IS 90 PERCENT. PT ON TELEMETRY. HEART RATE IS 106 ATH THIS TIME.
--- NOTE | 2020-11-05 02:37 | NUR ---
ABG WAS ORDERED. O2 SATS BETWEEN 81 TO 83 PERCENT[address] RESP [address] ANGELES WAS INFORMED PER COLIN KENNEY LPN.
--- NOTE | 2020-11-05 02:59 | NUR ---
BHUTTA NOTIFIED OF ABG RESULTS AT THIS TIME- PO2-42, PC02-51, AND 02 SATURATION IS 81% ON 100% HIGH FLOW NASAL CANNULA. BHUTTA INQUIRED ON A PCU BED AND BIPAP MACHINE FOR PT AT THIS TIME. CNO NOTIFIED AT THIS TIME FOR FURTHER STEPS SINCE ICU/PCU IS FULL.
--- NOTE | 2020-11-05 03:06 | NUR ---
COLIN KENNEY CALLED AND INFORMED DR. ANGELES OF PT'S ABG. NEW ORDER RECEIVED TO MOVE PATIENT TO ICU.
--- NOTE | 2020-11-05 03:36 | NUR ---
RESPIRATORY AT BEDSIDE TO CONNECT PT TO BIPAP. NEW ORDERS PER DR. ANGELES WRITTEN. PT IS TO BE MOVED TO PCU 2.
--- NOTE | 2020-11-05 03:50 | NUR ---
PT PLACED ON BIPAP AFTER ABG PER DR ANGELES.
--- NOTE | 2020-11-05 04:06 | NUR ---
KARTHIK NOTIFIED OF ANXIOUS BEHAVIOR EXPERIENCED BY PT. WHILE BEING PUT ON BIPAP. PHYSICIAN GAVE ORDER FOR ATIVAN 1 MG IVP Q6H PRN FOR ANXIETY. ORDERS NOTED AND CARRIED OUT AT THIS TIME.
--- NOTE | 2020-11-05 04:16 | NUR ---
PT WAS GIVEN ATIVAN 1 MG IVSP. PT IS ANXIOUS AND PULLING OFF BIPAP. RESP ARE 40 PER MINUTE. PT WITH HISTORY OF ANXIETY.
--- NOTE | 2020-11-05 06:44 | NUR ---
PATIENT ARRIVED VIA STREATCHER AND PUON THE BIPAP BY RT. PATIENT IS RESTISNG AND O2 IS 93%. PATIENT HAD A BOWL MOVMENT AN STOOL SAMPLE COLLECTED
[2020-11-05 09:02] LABS: PLATELET COUNT 223 K/uL (152-353)
[2020-11-05 09:05] LABS: POTASSIUM 4.3 mmol/L (3.6-5.2)
--- NOTE | 2020-11-05 15:40 | NUR ---
Pt PLACED ON NRB AT THIS TIME PER MD ORDER. BIPAP DISCONTINUED @ 0765. J BUILDING CUSTODIAL SUPERVISOR
--- NOTE | 2020-11-05 16:15 | NUR ---
1525 BIPAP REMOVED PT PLACED ON NRB AT 15 LITERS 100% SATS 87-90%
[2020-11-06] VITALS: BP 171/95; TEMP 100.6
[2020-11-06 00:01] VITALS: BP 461/106; TEMP 100.6
[2020-11-06 01:00] VITALS: BP 157/100
--- NOTE | 2020-11-06 02:09 | NUR ---
PATIENT HAS BEEN RECIEVING PRN DOSES OF MORPHINE FOR EXTREEM SHORTNESS OF BREATH. PATIENT HAS NOW BEEN STARTED ON A CARIEZEM PER VERBAL ORDDER BY KETTY JACOBS DUE TO BLOOD PRESSURE.
[2020-11-06 04:00] VITALS: BP 155/89; TEMP 101.4
--- NOTE | 2020-11-06 04:26 | NUR ---
PATIENT FAMILY MENBER IS BEING UPDATED ON PATIENTS CONDITION. PATIENT O2 SATURATION HAS LOWERED INTO THE 80S. THE PATIENT IS BEING TREATED FOR AGGITATION, SOB, AND HIGH BLOODD PRESSURE.
[2020-11-06 05:00] VITALS: BP 107/64
--- NOTE | 2020-11-06 06:41 | NUR ---
PATIENT HAS EXTREEM TACKYPNEA. MORPHINEE PRN GIVEN TO RELIEVE PATIENT
--- NOTE | 2020-11-06 06:48 | NUR ---
PATIENT HAS BEEN REPOSITIONED FOR COMFORT. PATIENT IS EXTREEMLY TACKYPNEA.
--- NOTE | 2020-11-06 07:05 | NUR ---
REC'D PT WITH LABORED BREATHING SATS AT 58%. ALL PRN MEDS GIVEN PRIOR TO MY ARRIVAL. DR JACOBS INFORMED OF PT'S CONDITION AND RESP DISTRESS. DR JAOCBS TOLD ME TO CONT WITH CURRENT ORDERS AT THIS TIME.
--- NOTE | 2020-11-06 07:19 | NUR ---
LATE ENTRY 11/05/201933 PATIENT NOTED AT SHIFT CHANGE ON NON REBREATHER AND NASAL CANNULA IN MODERATE RESPIRATORY DISTRESS WITH RR-51 AND SPO2 81%, ABDOMINAL USE. ORDERS WERE GIVEN TO PROVIDE CARE AND COMFORT AND TREAT UNDERLYING CONDITION. PATIENT WAS ON AMIODORONE FOR ABNORMAL HEART RHYTHM AND INCREASE BLOOD PRESSURE. PATIENT TO BE GIVEN MORPHINE 1 MG Q1 FOR WORKFORCE OF BREATHING AND ATIVAN FOR RESTLESSNESS. PATIENT HAS FOR THE MOST PART HAS BEEN SHORT OF BREATH WITH RR-50'S.
--- NOTE | 2020-11-06 07:58 | NUR ---
PT PLACED ON HFNC WITH FIO2 OF 100% AT 60LPM. SPO2 AT 63%, RR-44, HR-101.
--- NOTE | 2020-11-06 10:14 | NUR ---
SON OF THIS PT (ISABELLE) CALLED ICU. UPDATE WAS GIVEN THAT DR JACOBS HAS ATTEMPTED TO CONATCT ISABELLE AT [phone] THREE TIMES. AND ALL THREE TIMES THERE WAS NO ANSWER. ISABELLE STATED HIS PHONE IS NOT WORKING PROPERLY AND GAVE US [phone] TO CONTACT HIM. PT OTHER SON (CLAUDINE) CALLED AND STATED [facility] IS DRINKING A WAY TO COPE WITH THE CURRENT CONDITION OF THIS PATIENT. CLAUDINE STATED HE USE TO BE THE POINT OF CONTACT FOR THIS PATIENT. BUT POINT OF CONTACT WAS CHANGED TO ISABELLE BECAUSE CLAUDINE WORKS AT THE INTERMEDIATE AND NOT ALLOWED TO HAVE A PHONE.
--- NOTE | 2020-11-06 10:29 | NUR ---
REC'D PHONE CALL FROM PT'S SON ISABELLE WHO REQUESTED TO SPEAK TO ME BY NAME. ISABELLE STATES "I'VE BEEN WAITING ON DR. CASTRO TO CALL ME AND HAVE NOT HEARD FROM HER YET" INFORMED PT'S SON ISABELLE THAT DR. JACOBS HAS MADE AN ATTEMPT TO CALL HIM THREE TIMES ALREADY PREVIOUSLY INFORMED BY ZEINA LANCASTER. ISABELLE STATES "I'VE HAD MY PHONE RIGHT HERE THE WHOLE TIME AND NO ONE HAS CALLED MY PHONE, HERE I'M GOING TO LET SOMEONE GIVE YOU ANOTHER NUMBER" [phone] NUMBER WAS GIVEN AGAIN WHICH IS THE SAME NUMBER PREVIOUSLY GIVEN TO ZEINA LANCASTER. ISABELLE REQUESTED DR. JACOBS'S PERSONAL CELL PHONE NUMBER STATING "CAN YOU JUST GIVE ME HER NUMBER CAUSE SHE GAVE ME HER PERSONAL CELL PHONE NUMBER YESTERDAY BUT I DELETED IT" INFORMED HIM I CANNOT GIVE HER NUMBER OUT BUT SHE IS MAKING ROUNDS AND WILL HAVE TO CALL YOU WHEN SHE GETS BACK TO HER OFFICE. ISABELLE STATES "OK BUT TELL ME IS MY MAMA ON THE VENTILATOR OR HOW IS SHE DOING" UPDATED THAT SHE IS NOT ON THE VENTILATOR AT THIS TIME AND STABLE AT THIS MOMENT. ISABELLE STATES "SO YOU'RE SAYING IF SHE DIDN'T HAVE THE MORPHINE SHE WOULD KNOW WHAT ALL IS GOING ON" RESPONDED TO ISABELLE STATING, THE MORPHINE IS TO HELP HER BREATHING NOT TO SEDATE HER. ISABELLE STATES OK JUST TELL THE DOCTOR TO CALL ME RIGHT NOW.
--- NOTE | 2020-11-06 22:45 | NUR ---
PATIENT NOTED WITH INCREASED RR-50'S-60'S. PATIENT GIVEN ATIVAN 1 MG AND MORPHINE 1 MG IV PUSH. WILL REASSESS FOR DECREASE IN RESPIRATION. PATIENT CONTINUES ON HIGH FLOW AT 60 LPM; FIO2 100% AND NON REBREATHER.
--- NOTE | 2020-11-07 02:29 | NUR ---
PATIENT STILL NOTED WITH INCREASED RR-50'S AND ACCESSORY MUSCLE USE. ATIVAN 1 MG AND MORPHINE 1 MG GIVEN IV PUSH.
--- NOTE | 2020-11-07 04:20 | NUR ---
WHILE CLEANING PATIENT ICU BED 1, RT NOTIFIED THIS NURSE THAT PATIENT IN PCU 2 HAD PASSED. PATIENT ASSESSED AND IT WAS NOTED PUPILS WERE DILATED AND FIXED, NO SPONTANEOUS BREATHING NOTED. FROM THE ER NOTIFIED AT THIS TIME.
--- NOTE | 2020-11-07 04:26 | NUR ---
PRONOUNCED PATIENT AT THIS TIME.
--- NOTE | 2020-11-07 06:16 | NUR ---
POST MORTEM CARE GIVEN AT THIS TIME.
--- NOTE | 2020-11-07 07:02 | NUR ---
[facility] HERE TO MALLET CUTTER BODY.
== END 2020-11-07 06:44 | disposition expired | DRG 177 ==
LOC: ED 17:56 → MED/SURG 11-04 11:45 → PCU 11-05 05:55
PROVIDERS: Hospitalist; ADMIT Internal Medicine; ATTEND Internal Medicine
PROC: 30233N1 Transfusion of Nonautologous Red Blood Cells into Peripheral Vein, Percutaneous Approach (ICD-10-PCS; principal; 2020-11-04)
PROC: 30233K1 Transfusion of Nonautologous Frozen Plasma into Peripheral Vein, Percutaneous Approach (ICD-10-PCS; 2020-11-04)
PROC: 30233N1 Transfusion of Nonautologous Red Blood Cells into Peripheral Vein, Percutaneous Approach (ICD-10-PCS; 2020-11-05)
DX: U07.1 COVID-19 (principal); J12.82 Pneumonia due to coronavirus disease 2019; J96.01 Acute respiratory failure with hypoxia; A04.72 Enterocolitis due to Clostridium difficile, not specified as recurrent; D62 Acute posthemorrhagic anemia; Q27.33 Arteriovenous malformation of digestive system vessel; F03.90 Unspecified dementia, unspecified severity, without behavioral disturbance, psychotic disturbance, mood disturbance, and anxiety; I10 Essential (primary) hypertension; E11.9 Type 2 diabetes mellitus without complications; K21.9 Gastro-esophageal reflux disease without esophagitis; J44.9 Chronic obstructive pulmonary disease, unspecified; I48.91 Unspecified atrial fibrillation
CPT/HCPCS: 36415; 36430; 36600; 80048; 80053; 82805; 82948; 83605; 84443; 84484; 85014; 85018; 85027; 85610; 85730; 86900; 86901; 87015; 87040; 87045; 87324; 87449; 87899; 93005; 94660; 94760; 96360; 96365; 96372; 96375; 96376; 99285; J0132; J0282; J1100; J1815; J1956; J2060; J2270; J2920; J2930; J3490; P9017; Q9963